=== PATIENT | male | born 1995 | race Hispanic/Latino ===

== ENCOUNTER 2019-07-19 11:20 | Emergency (ER) | payer OTHER | END 2019-07-19 13:45 | disposition home or self-care (01) | LOC: ERS 11:20 | DX: J11.1 Influenza due to unidentified influenza virus with other respiratory manifestations (principal); Z20.828 Contact with and (suspected) exposure to other viral communicable diseases | CPT/HCPCS: 87081; 87430; 87635; 87804; 99283; U0002 ==